=== PATIENT | male | born 1995 | race Asian ===

== ENCOUNTER 2017-09-14 12:05 | Emergency (ER) | payer OTHER ==
[~2017-09-14] VITALS: Ht 195.6 cm; Wt 68.0 kg
[2017-09-14 12:28] VITALS: BP 125/67
== END 2017-09-14 14:00 | disposition home or self-care (01) ==
LOC: ER 13:38
DX: J02.0 Streptococcal pharyngitis (principal); J11.1 Influenza due to unidentified influenza virus with other respiratory manifestations
CPT/HCPCS: 99283